=== PATIENT | female | born 1975 | race Caucasian/White ===

== ENCOUNTER 2020-07-18 16:42 | Inpatient (IN) | payer OTHER, SELFPAY ==
[~2020-07-18] VITALS: Ht 165.1 cm; Wt 55.3 kg
[2020-07-18 16:42] VITALS: BP_SYST 98
[~2020-07-18 16:42] MED LIST: BUPIVACAINE /EPINEPHRINE/PF 0.5% 30 ML VIAL INJ ONE; CEFAZOLIN 2 GM IVPB PREMIX 50 ML IV ONE; GLYCOPYRROLATE 0.2 MG/ML VIAL IJ ONE; LR 1,000 ML IV.SOLN IV ONE; MIDAZOLAM HCL 5 MG/5 ML VIAL IVP ONE; NEOSTIGMINE METHYLSULFATE 1 MG/ML, 10 ML VIAL IVP ONE; NS 1000 ML IV.SOLN IV ONE; NS IRRIG SOLN 1000 ML IR ONE; ONDANSETRON HCL 4 MG/2 ML VIAL IVP ONE; PROPOFOL 200MG/ 20ML VIAL (DIPRIVAN) IV ONE; ROCURONIUM BROMIDE 10 MG/ML (ZEMURON) IV ONE; SEVOFLURANE 15 MIN GAS INH ONE; fentaNYL CITRATE/PF 100 MCG/2 ML AMP IVP ONE
[2020-07-18] MEDS ORDERED: LR 1,000 ML IV ONE ×2 (17:00)
[2020-07-18 17:22] LABS: BASOPHILS # (AUTO) 0.1 K/uL (0.0-0.2); HEMOGLOBIN 7.3 g/dL (12.0-16.0); MONOCYTES # (AUTO) 0.9 K/uL (0.0-1.0); NEUTROPHILS # (AUTO) 8.2 K/uL (1.8-7.7); WHITE BLOOD COUNT (AUTO) 11.1 K/uL (4.8-10.8)
[2020-07-18 17:25] LABS: CALCIUM 8.2 mg/dL (8.4-11.0); CREATININE 1.26 mg/dL (0.55-1.30); POTASSIUM 3.8 mmol/L (3.5-5.1)
[2020-07-18 17:26] LABS: BASOPHILS % (AUTO) 0.5 % (0.0-2.0); EOSINOPHILS # (AUTO) 0.2 K/uL (0.0-0.4); EOSINOPHILS % (AUTO) 1.5 % (0.0-4.0); LYMPHOCYTES # (AUTO) 1.7 K/uL (1.0-5.5); LYMPHOCYTES % (AUTO) 15.5 % (20.5-51.5); MEAN CORPUSCULAR HEMOGLOBIN 27 pg (27-31); MEAN CORPUSCULAR HGB CONC 33 % (32-36); MEAN CORPUSCULAR VOLUME 82 fL (79.0-98.0); MONOCYTES % (AUTO) 8.2 % (1.7-9.3); NEUTROPHILS % (AUTO) 74.3 % (40.0-70.0); PLATELET COUNT (AUTO) 169 K/uL (130-430); RED BLOOD CELL COUNT(AUTO) 2.67 MIL/uL (4.2-6.2); RED CELL DISTRIBUTION WIDTH 16.9 % (9.0-15.0)
[2020-07-18 17:33] LABS: HEMATOCRIT 21.9 % (36-48)
[2020-07-18 17:36] LABS: ALBUMIN 3.3 g/dL (3.4-4.8); BILIRUBIN,DIRECT 0.1 mg/dL (0.0-0.3); TOTAL BILIRUBIN 0.5 mg/dL (0.0-1.0)
[2020-07-18] MEDS ORDERED: fentaNYL CITRATE/PF 100 MCG/2 ML AMP IVP ONE ×2 (17:45→19:30)
[2020-07-18] MEDS ORDERED: IOHEXOL 350 mgI/mL, 150 ML INFUS..BTL IV ONE (17:50)
[2020-07-18 17:52] LABS: INR 3.3 (0.8-1.2); PROTHROMBIN TIME 32.8 SECS (9.5-12.5)
[2020-07-18] MEDS ORDERED: HUMAN PROTHROMBIN COMPLX(PCC) 500 UNITS KIT IV ONE (19:00)
[2020-07-18] MEDS ORDERED: PHYTONADIONE 10 MG in NS 50 ML IV ONE (19:30)
[2020-07-18 20:02] LABS: BILIRUBIN,URINE NEGATIVE (NEGATIVE); BLOOD, URINE NEGATIVE (NEGATIVE); CLARITY/URINE CLEAR (CLEAR); COLOR,URINE YELLOW (YELLOW); GLUCOSE,URINE NEGATIVE (NEGATIVE); KETONES,URINE TRACE (NEGATIVE); LEUKOCYTE ESTERASE ,URINE NEGATIVE (NEGATIVE); NITRITE, URINE NEGATIVE (NEGATIVE); PROTEIN URINE NEGATIVE (NEGATIVE)
[2020-07-18] MEDS ORDERED: PHYTONADIONE 10 MG/ML AMP ONE (20:13)
[2020-07-18] MEDS ORDERED: PHYTONADIONE Non-Formulary 5 MG TABLET PO ONE (20:45)
[2020-07-18] MEDS ORDERED: D5/0.45 NS 1,000 ML IV SCH (21:00)
[2020-07-18] MEDS ORDERED: HYDROmorphone 1 MG INJ. 1 MG/ML AMPUL IVP PRN (21:00)
[2020-07-18] MEDS ORDERED: PHYTONADIONE (Vitamin K) Oral Solution PO ONE (22:00)
[2020-07-18 22:10] VITALS: BP_SYST 106
[2020-07-18] MEDS: HYDROmorphone 2 MG/ML VIAL IVP PRN (22:29)
[2020-07-18] MEDS ORDERED: QUET50TA PO (22:44)
[2020-07-18] MEDS ORDERED: GABA600T PO (22:44)
[2020-07-18] MEDS ORDERED: WARF7.5T49 PO (22:44)
[2020-07-18] MEDS ORDERED: QUET200T PO (22:44)
[2020-07-18] MEDS ORDERED: DULO60CA41 PO (22:44)
[2020-07-18] MEDS: QUEtiapine FUMARATE 100 MG TABLET PO SCH (23:55)
[2020-07-19] MEDS: NACL 0.9% 1,000 ML IV SCH ×4 (01:25→16:50)
[2020-07-19] MEDS: HYDROmorphone 2 MG/ML VIAL IVP PRN ×5 (01:50→22:34)
[2020-07-19 02:12] LABS: BASOPHILS % (AUTO) 0.4 % (0.0-2.0); EOSINOPHILS # (AUTO) 0.2 K/uL (0.0-0.4); EOSINOPHILS % (AUTO) 2.8 % (0.0-4.0); HEMATOCRIT 23.8 % (36-48); HEMOGLOBIN 7.7 g/dL (12.0-16.0); LYMPHOCYTES # (AUTO) 0.8 K/uL (1.0-5.5); MEAN CORPUSCULAR HEMOGLOBIN 28 pg (27-31); MEAN CORPUSCULAR HGB CONC 33 % (32-36); MEAN CORPUSCULAR VOLUME 87 fL (79.0-98.0); MONOCYTES # (AUTO) 0.7 K/uL (0.0-1.0); MONOCYTES % (AUTO) 12.2 % (1.7-9.3); NEUTROPHILS # (AUTO) 3.8 K/uL (1.8-7.7); NEUTROPHILS % (AUTO) 70.6 % (40.0-70.0); PLATELET COUNT (AUTO) 104 K/uL (130-430); RED BLOOD CELL COUNT(AUTO) 2.73 MIL/uL (4.2-6.2); RED CELL DISTRIBUTION WIDTH 17.4 % (9.0-15.0); WHITE BLOOD COUNT (AUTO) 5.4 K/uL (4.8-10.8)
[2020-07-19 05:00] LABS: BASOPHILS % (AUTO) 0.5 % (0.0-2.0); EOSINOPHILS # (AUTO) 0.2 K/uL (0.0-0.4); EOSINOPHILS % (AUTO) 3.1 % (0.0-4.0); HEMATOCRIT 25.8 % (36-48); HEMOGLOBIN 8.4 g/dL (12.0-16.0); LYMPHOCYTES # (AUTO) 1.2 K/uL (1.0-5.5); LYMPHOCYTES % (AUTO) 15.8 % (20.5-51.5); MEAN CORPUSCULAR HEMOGLOBIN 28 pg (27-31); MEAN CORPUSCULAR HGB CONC 33 % (32-36); MEAN CORPUSCULAR VOLUME 87 fL (79.0-98.0); MONOCYTES # (AUTO) 0.9 K/uL (0.0-1.0); MONOCYTES % (AUTO) 12.7 % (1.7-9.3); NEUTROPHILS % (AUTO) 67.9 % (40.0-70.0); PLATELET COUNT (AUTO) 113 K/uL (130-430); RED BLOOD CELL COUNT(AUTO) 2.98 MIL/uL (4.2-6.2); RED CELL DISTRIBUTION WIDTH 17.2 % (9.0-15.0); WHITE BLOOD COUNT (AUTO) 7.4 K/uL (4.8-10.8)
[2020-07-19 05:10] LABS: INR 1.5 (0.8-1.2); PROTHROMBIN TIME 15.2 SECS (9.5-12.5)
[2020-07-19 07:30] VITALS: BP_SYST 93
[2020-07-19] MEDS ORDERED: ONDANSETRON HCL 4 MG/2 ML VIAL IVP PRN ×2 (09:00→09:45)
[2020-07-19] MEDS ORDERED: fentaNYL CITRATE/PF 100 MCG/2 ML AMP IVP PRN ×2 (09:00)
[2020-07-19 09:17] LABS: POTASSIUM 3.8 mmol/L (3.5-5.1)
[2020-07-19 09:18] LABS: CALCIUM 7.7 mg/dL (8.4-11.0)
[2020-07-19 09:19] LABS: CREATININE 0.68 mg/dL (0.55-1.30)
[2020-07-19 09:20] LABS: ALBUMIN 3.4 g/dL (3.4-4.8)
[2020-07-19] MEDS ORDERED: OXYCODONE/ACETAMINOPHEN 5-325 TABLET PO PRN (09:45)
[2020-07-19] MEDS ORDERED: NALOXONE HCL 0.4 MG/ML AMP (NARCAN) IVP PRN (09:45)
[2020-07-19] MEDS ORDERED: HEPARIN SODIUM,PORCINE 3000 UNITS/0.6 ML BOLUS IVP ONE (10:45)
[2020-07-19] MEDS ORDERED: HEPARIN SODIUM,PORCINE 2000 UNITS/0.4 ML BOLUS IVP PRN (11:00)
[2020-07-19] MEDS ORDERED: HEPARIN SODIUM,PORCINE 3000 UNITS/0.6 ML BOLUS IVP PRN (11:00)
[2020-07-19] MEDS: HYDROcodone/ACETAMIN 5-325 MG TAB (NORCO/ VICODIN) PO PRN ×2 (11:49→15:43)
[2020-07-19 12:00] VITALS: BP_SYST 99
[2020-07-19] MEDS: SIMETHICONE 80 MG TAB.CHEW PO SCH ×3 (13:11→20:13)
[2020-07-19] MEDS: HEPARIN 25,000 UNITS/D5W 250ML 250 ML IV PRN (13:11)
[2020-07-19 16:00] VITALS: BP_SYST 105
[2020-07-19] MEDS ORDERED: WARFARIN SODIUM 7.5 MG TABLET PO ONE (18:00)
[2020-07-19] MEDS: QUEtiapine FUMARATE 100 MG TABLET PO SCH ×2 (20:13→21:47)
[2020-07-19 20:15] VITALS: BP_SYST 97
[2020-07-19] MEDS: OXYCODONE/ACETAMINOPHEN 5-325 TABLET PO PRN (20:19)
[2020-07-20] MEDS: NACL 0.9% 1,000 ML IV SCH ×4 (01:12→23:08)
[2020-07-20] MEDS: OXYCODONE/ACETAMINOPHEN 5-325 TABLET PO PRN ×3 (01:15→20:30)
[2020-07-20 03:00] VITALS: BP_SYST 102
[2020-07-20] MEDS: HYDROmorphone 2 MG/ML VIAL IVP PRN ×3 (05:10→12:56)
[2020-07-20 06:21] LABS: BASOPHILS % (AUTO) 0.5 % (0.0-2.0); EOSINOPHILS # (AUTO) 0.2 K/uL (0.0-0.4); EOSINOPHILS % (AUTO) 3.8 % (0.0-4.0); HEMATOCRIT 25.4 % (36-48); HEMOGLOBIN 8.3 g/dL (12.0-16.0); LYMPHOCYTES # (AUTO) 0.9 K/uL (1.0-5.5); LYMPHOCYTES % (AUTO) 16.8 % (20.5-51.5); MEAN CORPUSCULAR HEMOGLOBIN 28 pg (27-31); MEAN CORPUSCULAR HGB CONC 33 % (32-36); MEAN CORPUSCULAR VOLUME 86 fL (79.0-98.0); MONOCYTES # (AUTO) 0.5 K/uL (0.0-1.0); MONOCYTES % (AUTO) 8.5 % (1.7-9.3); NEUTROPHILS # (AUTO) 3.8 K/uL (1.8-7.7); NEUTROPHILS % (AUTO) 70.4 % (40.0-70.0); PLATELET COUNT (AUTO) 82 K/uL (130-430); RED BLOOD CELL COUNT(AUTO) 2.95 MIL/uL (4.2-6.2); RED CELL DISTRIBUTION WIDTH 16.8 % (9.0-15.0); WHITE BLOOD COUNT (AUTO) 5.4 K/uL (4.8-10.8)
[2020-07-20 08:00] VITALS: BP_SYST 111
[2020-07-20 08:04] LABS: ALBUMIN 2.9 g/dL (3.4-4.8); CREATININE 0.6 mg/dL (0.55-1.30); POTASSIUM 3.7 mmol/L (3.5-5.1); TOTAL BILIRUBIN 0.4 mg/dL (0.0-1.0)
[2020-07-20] MEDS: SIMETHICONE 80 MG TAB.CHEW PO SCH ×4 (08:27→20:24)
[2020-07-20 09:40] LABS: INR 1.2 (0.8-1.2); PROTHROMBIN TIME 11.8 SECS (9.5-12.5)
[2020-07-20 12:00] VITALS: BP_SYST 117
[2020-07-20] MEDS ORDERED: DULoxetine HCL 20 MG CAPSULE.DR PO ONE (15:30)
[2020-07-20 16:46] VITALS: BP_SYST 122
[2020-07-20] MEDS: LORazepam 1 MG TABLET PO PRN ×2 (17:02→23:07)
[2020-07-20] MEDS: HEPARIN 25,000 UNITS/D5W 250ML 250 ML IV PRN (17:07)
[2020-07-20] MEDS ORDERED: WARFARIN SODIUM 5 MG TABLET PO ONE (18:00)
[2020-07-20 18:23] VITALS: BP_SYST 135
[2020-07-20 20:00] VITALS: BP_SYST 134
[2020-07-20] MEDS: QUEtiapine FUMARATE 100 MG TABLET PO SCH (20:24)
[2020-07-20] MEDS: GABAPENTIN 300 MG CAPSULE PO SCH (20:26)
[2020-07-20] MEDS: MUPIROCIN 2% TOPICAL OINTMENT 22 GM NS SCH (20:27)
[2020-07-21 00:15] VITALS: BP_SYST 137
[2020-07-21] MEDS: HYDROmorphone 2 MG/ML VIAL IVP PRN ×3 (00:51→17:26)
[2020-07-21 06:29] LABS: CALCIUM 7.7 mg/dL (8.4-11.0); CREATININE 0.49 mg/dL (0.55-1.30); POTASSIUM 3.4 mmol/L (3.5-5.1)
[2020-07-21 06:33] LABS: BASOPHILS % (AUTO) 0.4 % (0.0-2.0); EOSINOPHILS # (AUTO) 0.2 K/uL (0.0-0.4); EOSINOPHILS % (AUTO) 2.3 % (0.0-4.0); HEMATOCRIT 25.4 % (36-48); HEMOGLOBIN 8.3 g/dL (12.0-16.0); LYMPHOCYTES % (AUTO) 14.2 % (20.5-51.5); MEAN CORPUSCULAR HEMOGLOBIN 28 pg (27-31); MEAN CORPUSCULAR HGB CONC 33 % (32-36); MEAN CORPUSCULAR VOLUME 87 fL (79.0-98.0); MONOCYTES # (AUTO) 0.6 K/uL (0.0-1.0); MONOCYTES % (AUTO) 8.8 % (1.7-9.3); NEUTROPHILS # (AUTO) 5.1 K/uL (1.8-7.7); NEUTROPHILS % (AUTO) 74.3 % (40.0-70.0); PLATELET COUNT (AUTO) 115 K/uL (130-430); RED BLOOD CELL COUNT(AUTO) 2.94 MIL/uL (4.2-6.2); RED CELL DISTRIBUTION WIDTH 17.3 % (9.0-15.0); WHITE BLOOD COUNT (AUTO) 6.8 K/uL (4.8-10.8)
[2020-07-21] MEDS: NACL 0.9% 1,000 ML IV SCH ×2 (07:05→11:15)
[2020-07-21 08:00] VITALS: BP_SYST 138
[2020-07-21] MEDS: GABAPENTIN 300 MG CAPSULE PO SCH ×2 (09:03→20:42)
[2020-07-21] MEDS: SIMETHICONE 80 MG TAB.CHEW PO SCH ×4 (09:03→20:41)
[2020-07-21] MEDS: MUPIROCIN 2% TOPICAL OINTMENT 22 GM NS SCH ×2 (09:04→20:41)
[2020-07-21] MEDS: DULoxetine HCL 20 MG CAPSULE.DR PO SCH (09:04)
[2020-07-21 10:43] LABS: INR 1.8 (0.8-1.2)
[2020-07-21 12:27] VITALS: BP_SYST 121
[2020-07-21] MEDS ORDERED: POTASSIUM CHLORIDE 20 MEQ/PKT PACKET PO ONE (13:00)
[2020-07-21] MEDS ORDERED: FUROSEMIDE 20 MG/2 ML VIAL IVP ONE (13:00)
[2020-07-21] MEDS ORDERED: WARFARIN SODIUM 5 MG TABLET PO ONE (14:00)
[2020-07-21] MEDS: LORazepam 1 MG TABLET PO PRN (14:41)
[2020-07-21 16:05] VITALS: BP_SYST 120
[2020-07-21 19:35] VITALS: BP_SYST 142
[2020-07-21] MEDS: QUEtiapine FUMARATE 100 MG TABLET PO SCH (20:42)
[2020-07-22 00:10] VITALS: BP_SYST 121
[2020-07-22] MEDS: LORazepam 1 MG TABLET PO PRN (04:04)
[2020-07-22] MEDS: HYDROmorphone 2 MG/ML VIAL IVP PRN (06:02)
[2020-07-22 06:29] LABS: BASOPHILS % (AUTO) 0.5 % (0.0-2.0); EOSINOPHILS # (AUTO) 0.1 K/uL (0.0-0.4); EOSINOPHILS % (AUTO) 2.7 % (0.0-4.0); HEMATOCRIT 27.3 % (36-48); HEMOGLOBIN 9.1 g/dL (12.0-16.0); LYMPHOCYTES # (AUTO) 0.5 K/uL (1.0-5.5); LYMPHOCYTES % (AUTO) 9.5 % (20.5-51.5); MEAN CORPUSCULAR HEMOGLOBIN 29 pg (27-31); MEAN CORPUSCULAR HGB CONC 33 % (32-36); MEAN CORPUSCULAR VOLUME 86 fL (79.0-98.0); MONOCYTES # (AUTO) 0.5 K/uL (0.0-1.0); MONOCYTES % (AUTO) 8.9 % (1.7-9.3); NEUTROPHILS # (AUTO) 4.1 K/uL (1.8-7.7); NEUTROPHILS % (AUTO) 78.4 % (40.0-70.0); PLATELET COUNT (AUTO) 133 K/uL (130-430); RED BLOOD CELL COUNT(AUTO) 3.16 MIL/uL (4.2-6.2); RED CELL DISTRIBUTION WIDTH 17.3 % (9.0-15.0); WHITE BLOOD COUNT (AUTO) 5.2 K/uL (4.8-10.8)
[2020-07-22 06:38] LABS: ALBUMIN 2.9 g/dL (3.4-4.8); CALCIUM 8.2 mg/dL (8.4-11.0); CREATININE 0.56 mg/dL (0.55-1.30); POTASSIUM 3.5 mmol/L (3.5-5.1); TOTAL BILIRUBIN 0.5 mg/dL (0.0-1.0)
[2020-07-22 08:22] VITALS: BP_SYST 138
[2020-07-22] MEDS: HYDROcodone/ACETAMIN 5-325 MG TAB (NORCO/ VICODIN) PO PRN (08:49)
[2020-07-22] MEDS: GABAPENTIN 300 MG CAPSULE PO SCH (08:49)
[2020-07-22] MEDS: SIMETHICONE 80 MG TAB.CHEW PO SCH ×2 (08:50→12:27)
[2020-07-22] MEDS: DULoxetine HCL 20 MG CAPSULE.DR PO SCH (08:50)
[2020-07-22] MEDS: MUPIROCIN 2% TOPICAL OINTMENT 22 GM NS SCH (08:50)
[2020-07-22 09:08] VITALS: BP_SYST 138
[2020-07-22 09:10] LABS: INR 3.8 (0.8-1.2); PROTHROMBIN TIME 37.9 SECS (9.5-12.5)
[2020-07-22] MEDS ORDERED: WARFARIN SODIUM 5 MG TABLET PO ONE (09:30)
[2020-07-22 10:15] LABS: INR 3.9 (0.8-1.2); PROTHROMBIN TIME 38.8 SECS (9.5-12.5)
[2020-07-22 12:20] VITALS: BP_SYST 150
[2020-07-22 14:37] VITALS: BP_SYST 150
[2020-07-22] MEDS ORDERED: PERC10 PO (14:51)
[2020-07-22] MEDS ORDERED: percocet PO (14:52)
== END 2020-07-22 15:40 | disposition home or self-care (01) | DRG 742 ==
LOC: SED 16:42 → STU 20:50
PROVIDERS: ADMIT Specialist; ATTEND Specialist
PROC: 0UB10ZZ Excision of Left Ovary, Open Approach (ICD-10-PCS; 2020-07-19)
PROC: 0TJ Urinary System, Inspection (ICD-10-PCS; 2020-07-19)
PROC: 30233N1 Transfusion of Nonautologous Red Blood Cells into Peripheral Vein, Percutaneous Approach (ICD-10-PCS; 2020-07-19)
PROC: 30233K1 Transfusion of Nonautologous Frozen Plasma into Peripheral Vein, Percutaneous Approach (ICD-10-PCS; 2020-07-19)
PROC: 0W9J00Z Drainage of Pelvic Cavity with Drainage Device, Open Approach (ICD-10-PCS; principal; 2020-07-19 08:00)
DX: N83.202 Unspecified ovarian cyst, left side (principal); K66.1 Hemoperitoneum; R57.8 Other shock; N83.8 Other noninflammatory disorders of ovary, fallopian tube and broad ligament; D64.9 Anemia, unspecified; D69.6 Thrombocytopenia, unspecified; Z79.01 Long term (current) use of anticoagulants; F32.9 Major depressive disorder, single episode, unspecified; Z20.828 Contact with and (suspected) exposure to other viral communicable diseases; Z95.4 Presence of other heart-valve replacement
CPT/HCPCS: 36415; 36430; 71045; 80048; 80053; 80076; 81003; 83690-TC; 84702-TC; 85025; 85610-TC; 85730-TC; 86886; 86900; 86901; 86920; 87081; 88305; 94010; 94760; 96361; 96365; 96375; 96376; 99291; C1727; G0378; J0690; J1170; J1644; J1940; J2250; J2405; J2704; J2710; J3010; J3430; J3490; J7030; J7040; J7120; P9021; P9059; Q9967; U0003-CS